=== PATIENT | female | born 1985 | race Caucasian/White ===

== ENCOUNTER 2018-05-23 20:35 | Emergency (ER) | payer MEDICAID, OTHER | END 2018-05-24 01:17 | disposition home or self-care (01) | LOC: CED 05-24 01:17 ==

== ENCOUNTER 2018-05-24 12:21 | Observation (INO) | payer MEDICAID ==
--- NOTE | 2018-05-24 13:34 | EDPHY ---
General - History Smoking Status: Light smoker Time Seen by Provider: 05/24/18 12:54 Narrative: CLINICAL IMPRESSION: Left elbow and forearm cellulitis ASSESSMENT/PLAN: 33-year-old female presents to the emergency department for admission after she was seen at [facility] yesterday for left arm cellulitis 2 weeks after a blood draw and this arm. Patient has a distant history of IV drug abuse but does not report a history of MRSA. IV access is difficult. She received 2 g of vancomycin yesterday. She reports increased erythema and swelling extending to the forearm and hand today. No documented fevers, chills , palpitations, nausea or vomiting. No clinical signs of compartment syndrome. Distal neurovascular exam is intact. Limited range of motion of the elbow secondary to pain. Ultrasound yesterday suggestive of a 2 x 3 cm fluid collection concerning for phlegmon versus early abscess. Case discussed with Dr. Marie who saw the patient in the emergency department. Will plan to admit to the hospitalist service for IV antibiotics and close observation. Case reviewed with Dr. Obregon who saw and examined the patient in the ED. Patient was stabilized in the ED for admission. DIFFERENTIAL DX: Differential includes but not limited to cellulitis, abscess, compartment syndrome, septic joint, bacteremia ED PROCEDURES: See lab and/or imaging results below ED COURSE: Patient seen assessed by myself. Previous records reviewed from [facility] yesterday. Discussed with Dr. Obregon. Patient admits to abusing heroin in her teens and 20s but denies current abuse. Working on IV access. Plan to admit. Plan to ultrasound the arm to assess for drainable abscess today. Case discussed with Dr. Obregon who also spoke to Dr. Marie. Dr. Marie saw the patient in the ED. Plan to admit the patient to hospitalist service. I discussed with Dr. Isbell. CHIEF COMPLAINT: Left arm swelling HPI: 33-year-old female with a distant history of IV drug abuse presents to the emergency department with left elbow, forearm and hand swelling over the last several days. Patient was seen and evaluated at the [facility] yesterday. She was diagnosed with cellulitis and a possible early abscess over the left elbow. She reports she had a blood draw in this area 2 weeks ago. She continued to have pain and discomfort since that time but over the last several days has noticed increased swelling, redness and warmth. She had laboratory evaluation, x-ray and ultrasound yesterday. There was some concern whether she may have had an early abscess in the elbow. She did not have this drained yesterday. Admission was recommended however she could not get early childhood teacher assistant coverage at the time. She received IV vancomycin and was discharged home with instructions to return to our ED today. She arrives with her mother and 7-year-old son and her parents are willing to take care of her children. She reports no history of MRSA. She denies fever, chills, nausea , vomiting, palpitations. She reports today her left hand became swollen and red. She has full range of motion of fingers and thumb. No reports of numbness to the hand. No pain into the axilla. PAST MEDICAL HISTORY: Depression, Anxiety, PTSD, Asthma See nurse/triage notes for additional history if applicable Pertinent Past Surgical History: C section nasal reconstruction Family History: Noncontributory Social History: Reported distant history of IV drug abuse in her teens and 20s. Denies IV drug abuse currently REVIEW OF SYSTEMS: All other systems negative Constitutional: No fever, no chills, appetite change. Cardiovascular: No chest pain, no palpitations. Respiratory: No cough, no shortness of breath. Gastrointestinal: No abdominal pain, no vomiting, diarrhea. Musculoskeletal: No back pain, positive for joint swelling, joint pain, myalgias. Skin: No rashes, positive for color change Neurological: No headache, dizziness, weakness. PHYSICAL EXAM: General Appearance: Alert, oriented, appropriate, cooperative, NAD, well hydrated, non-toxic appearing, VSS, no hypoxia. Respiratory: There are no retractions, lungs are clear to auscultation. Cardiac: Regular rate and rhythm, no murmurs or gallops. Gastrointestinal: Abdomen is soft, nontender Neurological: [ Alert and oriented x 3, CN 2-12 grossly intact Skin: Erythema and warmth noted to the volar aspect of the left elbow extending to mid forearm. Erythema also noted to the dorsum of the left hand although difficult to fully assess the extent of this given a large tattoo on the hand. no palpable area of fluctuance on the elbow or forearm Musculoskeletal: Asymmetric swelling of the left elbow forearm and hand compared to right. Compartments soft. Distal neurovascular exam intact. Patient is unable to fully extend the left elbow due to pain. Intact range of motion of the left wrist, hand and fingers. No open wound. Multiple scars noted to bilateral AC regions. Psychiatric: Patient is oriented X 3, there is no agitation. MEDICAL DECISION MAKING: Secondary supervising physician at time of evaluation was Dr. Obregon who also saw and examined the patient. Diagnosis: Left elbow and forearm cellulitis . New, requires workup Summary: See Assessment and Plan for summary of ED visit Clinical lab tests: ordered / reviewed. Independent visualization of images, tracing, or specimens: Yes. Decision to obtain medical records or history from someone other than the patient: No Review / Summarize previous medical records: Reviewed recent [facility] record Discussed patient with another provider: Dr. Obregon, Dr. Marie Patient Progress: Stable for admission. (Daniel Murphy) Medical Decision Making: Independent physician evaluation: I evaluated and participated in the management of the patient. I also evaluated the patient independently. My co-signature indicates that I have reviewed this chart and I agree with the findings and plan of care as documented. My personal H&P findings include: The patient presents the ED with worsening pain, redness and swelling to her left forearm and hand. The patient was seen at the freestanding ED yesterday and diagnosed with cellulitis. She was offered admission however declined secondary to childcare needs. She returns today secondary to ongoing pain and symptoms. Patient was started on clindamycin yesterday which she has continued to take. She did receive a dose of vancomycin. Physical exam: General Appearance: Alert, no distress Eyes: Pupils equal and round no pallor or injection ENT, Mouth: Mucous membranes moist Respiratory: There are no retractions, lungs are clear to auscultation Cardiovascular: Regular rate and rhythm Gastrointestinal: Abdomen is soft and nontender, no masses, bowel sounds normal Neurological: 5/5 strength noted all 4 extremities Skin: Cellulitis induration noted throughout the left upper extremity and hand. Tenderness in the left antecubital fossa. Musculoskeletal: Neck is supple nontender Extremities: symmetrical, full range of motion ED course: Patient is nontoxic and well-appearing presents to the ED with left upper extremity cellulitis and a small subcutaneous abscess noted on ultrasound yesterday. I placed a ultrasound guided IV catheter in her right antecubital fossa. Blood cultures has been ordered. The patient received vancomycin. Consultation was made with Dr. Marie at 2:00 p.m. for ED evaluation. The patient will be admitted to the hospitalist service for IV antibiotic therapy. (Christian Obregon) Procedures: Procedure: Ultrasound guidance for IV placement. Indication: The nurse requested that I place an intravenous catheter because of technical difficulties with this procedure on this patient. Procedure in details: Using the linear probe covered in a sterile sheath, a short axis of the basilic vein was obtained. This vein was completely compressible and was identified as separate from the adjacent noncompressible arterial structure. Under real-time guidance, the intravenous needle was observed to tent the vein and then to puncture it. Insertion of intravenous catheter: I prepped the patient's skin with chlorhexidine. I placed an 20 gauge gauge intravenous catheter in the visualized vein. Procedure performed by myself Dr. Christian Obregon. (Christian Obregon) - Objective Vital Signs: Initial Vital Signs Temperature (C) 36.8 C 05/24/18 12:29 Heart Rate 77 05/24/18 12:29 Respiratory Rate 17 05/24/18 12:29 Blood Pressure 119/70 05/24/18 12:29 O2 Sat (%) 99 05/24/18 12:29 O2 Delivery Mode Room Air Allergies/Adverse Reactions: Penicillins Allergy (Severe, Verified 05/24/18 12:29) Hives egg [Egg] Allergy (Verified 05/24/18 12:29) hydrocodone Allergy (Verified 05/24/18 12:29) latex Allergy (Verified 05/24/18 12:29) Home Medications: Medication Instructions Recorded Albuterol Sulfate [Proair Hfa] 1 - 2 puffs IH Q4H PRN 05/24/18 Clindamycin 300 mg PO DAILY 05/24/18 Fluticasone/Salmeter 500/50Mcg 1 puffs IH BID 05/24/18 [Advair 500/50 (*)] Multivitamins [Multivitamin (*)] 1 each PO DAILY 05/24/18 Phentermine HCl 18.75 mg PO DAILY 05/24/18 Laboratory Results: Laboratory Results 05/24/18 13:25 05/24/18 13:25 05/24/18 05/24/18 13:25 13:25 WBC REJ RBC REJ Hgb REJ Hct REJ MCV REJ MCH REJ MCHC REJ RDW REJ Plt Count REJ MPV REJ Neut % (Auto) REJ Lymph % (Auto) REJ [place] % (Auto) REJ Eos % (Auto) REJ Baso % (Auto) REJ Nucleat RBC Rel Count REJ Absolute Neuts (auto) REJ Absolute Lymphs (auto) REJ Absolute Monos (auto) REJ Absolute Eos (auto) REJ Absolute Basos (auto) REJ Absolute Nucleated RBC Not Reported Immature Gran % REJ Immature Gran # REJ ESR REJ Sodium 139 mEq/L mEq/L (135-145) Potassium 4.8 mEq/L mEq/L (3.5-5.2) Chloride 107 mEq/L mEq/L (97-110) Carbon Dioxide 24 mEq/l mEq/l (22-31) Anion Gap 8 mEq/L mEq/L (6-14) BUN 15 mg/dL mg/dL (7-23) Creatinine 0.9 mg/dL mg/dL (0.6-1.0) Estimated GFR > 60 Glucose 94 mg/dL mg/dL (70-100) Calcium 9.3 mg/dL mg/dL (8.5-10.4) C-Reactive Protein 17.7 mg/L H mg/L (<10.0) Specimen Hemolysis 136 Medications Given: Ketorolac Tromethamine (Toradol) 15 mg IVP Q6HRS PRN PRN Reason: Pain, Breakthrough Stop: 05/29/18 17:59 Last Admin: 05/24/18 15:40 Dose: 15 mg Departure - Departure Disposition: [facility] Clinical Impression: Abscess of antecubital fossa Cellulitis Qualifiers: Site of cellulitis: extremity Site of cellulitis of extremity: upper extremity Laterality: left Qualified Code(s): L03.114 - Cellulitis of left upper limb Condition: Fair
[2018-05-24 14:46] LABS: PLATELET COUNT 226 10^3/uL (150-400)
[2018-05-24] MEDS ORDERED: ONDANSETRON 4 MG/2 ML VIAL IVP PRN (14:55)
[2018-05-24] MEDS ORDERED: oxyCODONE IR 5 MG TAB PO PRN (14:55)
[2018-05-24] MEDS ORDERED: ACETAMINOPHEN 325 MG TAB PO PRN (14:55)
[2018-05-24] MEDS ORDERED: ONDANSETRON DISINTEGRATING 4 MG TAB PO PRN (14:55)
--- NOTE | 2018-05-24 15:01 | PDGENHP ---
History and Physical - Chief Complaint left arm swelling and pain - History of Present Illness 33yo F with past history of IVDU presents with left arm swelling, pain, and redness. She had a blood draw about 1.5 weeks ago. She was getting labs to work up her unexpected 25-30 pound weight gain. Since that time her left forearm hasn 't felt right and has been uncomfortable. Yesterday morning her arm became very swollen and red around her elbow and forearm. She went to the [facility] and had an ultrasound which was negative for DVT but did show cellulitis and phlegmon/ early abscess. She was advised inpatient admission but didn't have child care group leader set up. She was given 2g IV vancomycin and discharged with clindamycin. She took clindamycin this AM. She has been having chills but no fevers. She denies any IVDU since she was 19 years old. She hasn't noticed any open wounds or drainage. Denies history of MRSA infections. In the ED, Dr Marie of surgery was consulted. She is being admitted for further management. Case discussed with ED provider Daniel Murphy. History Information - Allergies/Home Medication List Allergies/Adverse Reactions: Penicillins Allergy (Severe, Verified 05/24/18 12:29) Hives egg [Egg] Allergy (Verified 05/24/18 12:29) hydrocodone Allergy (Verified 05/24/18 12:29) latex Allergy (Verified 05/24/18 12:29) Home Medications: Albuterol Sulfate [Proair Hfa] 1 - 2 puffs IH Q4H PRN 05/24/18 [Last Taken Unknown] Clindamycin 300 mg PO DAILY 05/24/18 [Last Taken 05/24/18] Fluticasone/Salmeter 500/50Mcg [Advair 500/50 (*)] 1 puffs IH BID 05/24/18 [ Last Taken 05/24/18] Multivitamins [Multivitamin (*)] 1 each PO DAILY 05/24/18 [Last Taken Unknown] Phentermine HCl 18.75 mg PO DAILY 05/24/18 [Last Taken 05/23/18] I have personally reviewed and updated: family history, medical history, social history, surgical history - Past Medical History Additional medical history: asthma, former IVDU - Surgical History Reports: no pertinent surgical hx - Family History Positive for: non-pertinent - Social History Smoking Status: Light smoker Alcohol Use: None Drug Use: Other (prior IV heroin use, none since age 19) Review of Systems Review of Systems: ROS: 10pt was reviewed & negative except for what was stated in HPI & below Physical Exam Physical Exam: Temp Pulse Resp BP Pulse Ox 36.9 C 74 18 121/68 H 99 05/24/18 14:45 05/24/18 14:45 05/24/18 14:45 05/24/18 14:45 05/24/18 14:45 Constitutional: no apparent distress, appears nourished, not in pain Eyes: PERRL, anicteric sclera, EOMI Ears, Nose, Mouth, Throat: moist mucous membranes, hearing normal, ears appear normal, no oral mucosal ulcers Cardiovascular: regular rate and rhythym, no murmur, rub, or gallop, other (2+ left radial pulse), No edema Respiratory: no respiratory distress, no rales or rhonchi, clear to auscultation Gastrointestinal: normoactive bowel sounds, soft, non-tender abdomen, no palpable masses Genitourinary: no bladder fullness, no bladder tenderness Skin: erythema (around left arm/forearm without lymphangitic streaking, edema of left arm) Musculoskeletal: full muscle strength, no muscle tenderness, normal joint ROM, no joint effusions Neurologic: AAOx3, sensation intact bilaterally Psychiatric: interacting appropriately, not anxious, not encephalopathic, thought process linear Lab Data & Imaging Review 05/24/18 14:40 05/24/18 13:25 WBC 5.07 10^3/uL (3.80-9.50) 05/24/18 14:40 RBC 4.40 10^6/uL (4.18-5.33) 05/24/18 14:40 Hgb 13.2 g/dL (12.6-16.3) 05/24/18 14:40 Hct 38.9 % (38.0-47.0) 05/24/18 14:40 MCV 88.4 fL (81.5-99.8) 05/24/18 14:40 MCH 30.0 pg (27.9-34.1) 05/24/18 14:40 MCHC 33.9 g/dL (32.4-36.7) 05/24/18 14:40 RDW 12.6 % (11.5-15.2) 05/24/18 14:40 Plt Count 226 10^3/uL (150-400) 05/24/18 14:40 MPV 9.2 fL (8.7-11.7) 05/24/18 14:40 Neut % (Auto) 53.7 % (39.3-74.2) 05/24/18 14:40 Lymph % (Auto) 26.8 % (15.0-45.0) 05/24/18 14:40 [place] % (Auto) 7.9 % (4.5-13.0) 05/24/18 14:40 Eos % (Auto) 10.8 % (0.6-7.6) H 05/24/18 14:40 Baso % (Auto) 0.6 % (0.3-1.7) 05/24/18 14:40 Nucleat RBC Rel Count 0.0 % (0.0-0.2) 05/24/18 14:40 Absolute Neuts (auto) 2.72 10^3/uL (1.70-6.50) 05/24/18 14:40 Absolute Lymphs (auto) 1.36 10^3/uL (1.00-3.00) 05/24/18 14:40 Absolute Monos (auto) 0.40 10^3/uL (0.30-0.80) 05/24/18 14:40 Absolute Eos (auto) 0.55 10^3/uL (0.03-0.40) H 05/24/18 14:40 Absolute Basos (auto) 0.03 10^3/uL (0.02-0.10) 05/24/18 14:40 Absolute Nucleated RBC 0.00 10^3/uL (0-0.01) 05/24/18 14:40 Immature Gran % 0.2 % (0.0-1.1) 05/24/18 14:40 Immature Gran # 0.01 10^3/uL (0.00-0.10) 05/24/18 14:40 ESR 15 MM/HR (0-20) 05/24/18 14:40 Sodium 139 mEq/L (135-145) 05/24/18 13:25 Potassium 4.8 mEq/L (3.5-5.2) 05/24/18 13:25 Chloride 107 mEq/L (97-110) 05/24/18 13:25 Carbon Dioxide 24 mEq/l (22-31) 05/24/18 13:25 Anion Gap 8 mEq/L (6-14) 05/24/18 13:25 BUN 15 mg/dL (7-23) 05/24/18 13:25 Creatinine 0.9 mg/dL (0.6-1.0) 05/24/18 13:25 Estimated GFR > 60 05/24/18 13:25 Glucose 94 mg/dL (70-100) 05/24/18 13:25 Calcium 9.3 mg/dL (8.5-10.4) 05/24/18 13:25 C-Reactive Protein 17.7 mg/L (<10.0) H 05/24/18 13:25 Specimen Hemolysis 136 05/24/18 13:25 Interpretation: Left arm x-ray (05/23): no bony abnormality, no gas but she does have soft tissue swelling. Left arm ultrasound (05/23): no DVT, left antecubital fossa phlegmon/early abscess Assessment & Plan Assessment: 33yo F with past history of IVDU presents with left arm swelling, pain, and redness. Plan: #Left arm cellulitis and early abscess: Reasonable to assume related to recent blood draw but h/o IVDU is concerning. She is not septic. No history of MRSA but with underlying abscess will cover. - IV vancomycin - 1 set of blood cultures were drawn yesterday - Dr Marie of surgery was consulted in ED, will likely require I&D - Tylenol, heating pads for pain control (avoid narcotics with heroin history ) #H/o IVDU: Denies using since age 19. #Recent weight gain: Being evaluated by PCP. #Asthma: No flare. Continue home inhalers. VTE ppx: SCDs Code: full Dispo: Admit under observation
[2018-05-24] MEDS ORDERED: ALBUTEROL 60 PUFFS/8 GM MDI IH PRN (15:15)
[2018-05-24] MEDS: KETOROLAC 15 MG/1 ML SDV IVP PRN ×2 (15:40→21:44)
[2018-05-24] MEDS ORDERED: diphenhydrAMINE 25 MG CAP PO ONE (16:02)
[2018-05-24] MEDS: VANCOMYCIN HCL/NORMAL SALINE 250 ML IV SCH (17:08)
[2018-05-24] MEDS ORDERED: oxyCODONE IR 5 MG TAB PO ONE (17:43)
[2018-05-24] MEDS: PHENTERMINE HCL 37.5 MG PO SCH (17:56)
[2018-05-24] MEDS ORDERED: diphenhydrAMINE 25 MG CAP PO PRN (20:40)
[2018-05-24] MEDS ORDERED: DIPHENHYDRAMINE CREAM TP PRN (20:40)
[2018-05-24] MEDS: FLUTICASONE/SALMETER 500/50MCG DISKUS IH SCH (21:37)
[2018-05-25] MEDS: VANCOMYCIN HCL/NORMAL SALINE 250 ML IV SCH (04:28)
[2018-05-25] MEDS: PHENTERMINE HCL 37.5 MG PO SCH (08:42)
--- NOTE | 2018-05-25 09:24 | GCON ---
[f rep st] CONSULTATION CHIEF COMPLAINT: Left upper extremity swelling. HISTORY OF PRESENT ILLNESS: This is a 33-year-old female with a past history of intravenous drug use who is admitted with increased left arm swelling, pain and redness. She reports that she had a blood draw about a week and a half ago to work up her unexpected 25- to 30-pound weight gain. Since then, she reports that her left forearm has become increasingly more swollen and painful. She underwent an ultrasound at [facility] that was negative for a DVT but did show cellulitis and early abscess. Since then, she has been on intravenous vancomycin and oral clindamycin. Today, the patient reports mild chills but no fevers. She denies any active drainage. REVIEW OF SYSTEMS: A 10-point review of systems was performed and is negative aside from what is in the HPI. PAST MEDICAL HISTORY: Intravenous heroin use, asthma. PAST SURGICAL HISTORY: None. FAMILY HISTORY: Noncontributory. ALLERGIES: Penicillin, eggs, hydrocodone, latex. SOCIAL HISTORY: The patient is a current light smoker, she denies current recreational drug use. MEDICATIONS: 1. Albuterol. 2. Advair. 3. Multivitamins. 4. Phentermine. PHYSICAL EXAM: GENERAL: A well-appearing female resting in a hospital bed in no acute distress. HEENT: Normocephalic, atraumatic. No gross hearing deficits. Mucous membranes moist, PERRLA. CARDIOVASCULAR: Regular rate and rhythm, no clicks, murmurs or rubs. RESPIRATORY: Clear to auscultation bilaterally. No increased work of breathing. ABDOMEN: Soft, nontender, nondistended. MUSCULOSKELETAL: Moves all extremities equally x4. NEUROLOGIC: Alert, oriented x3. PSYCHIATRIC: Appropriate mood and affect. INTEGUMENTARY : Left forearm has diffuse erythema throughout, extending from the antecubital fossa down to the wrist. 2+ edema present. Strong radial pulse. No fluctuance , drainage or malodor. IMPRESSION AND PLAN: This is a 33-year-old female with an early abscess in her left antecubital fossa. We have discussed all risks and options. Risks of surgery include, but are not limited to, infection, bleeding, damage to surrounding structures and nerves, need for further surgery, heart attack and . Patient understands and wishes to proceed. We will proceed with left antecubital fossa abscess incision and drainage. /[id number]/MODL MTDD
[2018-05-25] MEDS: FLUTICASONE/SALMETER 500/50MCG DISKUS IH SCH (09:26)
[2018-05-25 11:39] VITALS: BP 113/58
--- NOTE | 2018-05-25 12:04 | ASMTCMCOM ---
CM Note CM Note Notes: Pts case discussed w/ Dr. Orantes and TED Valenzuela. Pt is a 33 y/o female admitted for left elbow and forearm cellulitis. Surgery is consulted. Pt may have an I&D. Pt will most likely d/c independent when medically stable. It is uncertain if pt will require ivabx. Referral made to [facility]. CM available for changes. Plan: Independent Date Signed: 05/25/2018 12:03 PM Electronically Signed By:FERNANDO Carbajal
[2018-05-25] MEDS ORDERED: METHADONE HCL 10 MG/ML UDSYR PO SCH (12:15)
--- NOTE | 2018-05-25 12:27 | SOAPPROG ---
SOAP Progress Note Assessment/Plan: Assessment/Plan: Patient reports arm swelling and redness are much improved with antibiotics. She does not wish to have surgery at this time. Ok to discharge from surgical perspective. Follow up in Dr. Marie' office later this week. 05/25/18 12:26 Objective: Vital Signs Temp Pulse Resp BP Pulse Ox 36.4 C 69 16 113/58 L 98 05/25/18 11:39 05/25/18 11:39 05/25/18 11:39 05/25/18 11:39 05/25/18 11:39 Laboratory Results 05/24/18 14:40 ICD10 Worksheet Patient Problems: Problems Problem Status Onset Abscess of antecubital fossa Acute Cellulitis Acute
--- NOTE | 2018-05-25 16:55 | PDDCSUM ---
Discharge Summary Discharge Summary: Discharge diagnosis Left arm antecubital fossa cellulitis Left arm abscess Methadone dependence Patient is a 33-year-old female with past medical history of IV drug use and continued methadone dependence who presented to the emergency room with complaints of left arm pain. She had been seen at an outside ER was diagnosed with a cellulitis and started on clindamycin. She presents to the ER with increased pain swelling and redness of her arm. Ultrasound was obtained that showed a fluid collection consistent with an abscess. General surgery was consulted who initially thought that the patient would require an incision and drainage. She was started on IV vancomycin and dramatically improved over night. By the morning her swelling had decreased substantially. Surgery re- evaluated her and felt that she could likely be discharged without needing an incision and drainage. They did ask that she follow up in the clinic to ensure that it was resolving. She was discharged home on clindamycin 300 mg three times daily to follow up with General surgery in clinic in the next 2-3 days to ensure her arm was healing. Discharge disposition Home in good condition New medications Clindamycin 300 mg three times daily Follow-up Sohail Marie from General surgery
== END 2018-05-25 13:04 | disposition home or self-care (01) ==
LOC: F3E 15:02
PROVIDERS: ADMIT Internal Medicine; ATTEND Internal Medicine
DX: L03.114 Cellulitis of left upper limb (principal); F17.200 Nicotine dependence, unspecified, uncomplicated; F32.9 Major depressive disorder, single episode, unspecified; F41.9 Anxiety disorder, unspecified; F43.10 Post-traumatic stress disorder, unspecified; J45.909 Unspecified asthma, uncomplicated; Z88.0 Allergy status to penicillin
CPT/HCPCS: 96374; 96375; 96376; 99285; G0378; J1885; J3370